=== PATIENT | female | born 1980 | race Hispanic/Latino ===

== ENCOUNTER 2021-05-28 12:57 | Emergency (ER) | payer OTHER ==
[~2021-05-28] VITALS: Ht 147.3 cm; Wt 59.0 kg
== END 2021-05-28 13:34 | disposition home or self-care (01) ==
LOC: ER 13:29
DX: R53.83 Other fatigue (principal); R53.1 Weakness; Z86.16 Personal history of COVID-19
CPT/HCPCS: 99282